=== PATIENT | female | born 1995 | race Caucasian/White ===

== ENCOUNTER 2018-08-14 07:26 | Emergency (ER) | payer OTHER ==
[2018-08-14 07:35] VITALS: BP 143/67; PULSE 70; TEMP 97.9; BMI 25.3
[2018-08-14] MEDS ORDERED: KETOROLAC TROMETHAMINE 60 MG/2 ML VIAL IM ONE (07:37)
[2018-08-14] MEDS ORDERED: KETOROLAC TROMETHAMINE 60 MG/2 ML VIAL ONE (07:39)
--- NOTE | 2018-08-14 07:53 | PDOC ---
History of Present Illness - General Chief Complaint: Injury Stated Complaint: ANKLE PAIN Time Seen by Provider: 08/14/18 07:32 History Source: Patient Exam Limitations: Clinical Condition - History of Present Illness Initial Comments: 08/14/18 07:48 Patient with no significant past medical history present with complaint of severe pain and swelling to right ankle status post twisting her ankle while going to airplane last night. Patient was seen in the ED in [facility] which x-ray was done and patient was splinted per patient flu back to the [place] to be evaluated. Patient does not know what x-ray showed in the ED in [facility]. Patient reported increased pain to right ankle with ambulation. Denies numbness or tingling sensation. Denies hitting head or loss of consciousness. Timing/Duration: 24 hours Past History - Past Medical History Allergies/Adverse Reactions: Allergies Allergy/AdvReac Type Severity Reaction Status Date / Time No Known Allergies Allergy Verified 08/14/18 07:37 Home Medications: Ambulatory Orders Ibuprofen 800 mg PO Q8H PRN #20 tablet 08/14/18 Oxycodone HCl/Acetaminophen [Percocet 5-325 mg Tablet] 1 tab PO Q6H PRN #10 tablet MDD 3 08/14/18 COPD: No Kidney Stones: No - Surgical History Appendectomy: Yes - Immunization History Immunization Up to Date: Yes - Suicide/Smoking/Psychosocial Hx Smoking Status: No Smoking History: Unknown if ever smoked Have you smoked in the past 12 months: No Number of Cigarettes Smoked Daily: 0 Information on smoking cessation initiated: No Hx Alcohol Use: No Drug/Substance Use Hx: No Substance Use Type: None Review of Systems - Review of Systems Able to Perform ROS?: Yes Is the patient limited Yi proficient: No Constitutional: No: Weakness HEENTM: No: Symptoms Reported Respiratory: No: Symptoms reported Cardiac (ROS): No: Symptoms Reported, Lightheadedness ABD/GI: No: Symptoms Reported Musculoskeletal: Yes: Symptoms Reported, See HPI, Joint Pain (right ankle), Joint Swelling (right ankle), Muscle Pain (right ankle) Integumentary: Yes: Bruising, Change in Color (medial side of right ankle) Neurological: No: Numbness, Paresthesia, Tingling All Other Systems: Reviewed and Negative *Physical Exam - Vital Signs Last Vital Signs Temp Pulse Resp BP Pulse Ox 97.9 F 70 18 143/67 99 08/14/18 07:28 08/14/18 07:28 08/14/18 07:28 08/14/18 07:28 08/14/18 07:28 - Physical Exam Comments: 08/14/18 07:53 GENERAL: Well developed, well nourished. Awake and alert in moderate acute distress. CARDIOVASCULAR: Regular rate and rhythm. No murmurs, rubs, or gallops. PULMONARY: No evidence of respiratory distress. MUSCULOSKELETAL : Moderate tenderness to palpate to medial and lateral malleolus of right ankle. Moderate swelling to right ankle and whole foot. Mild swelling to right lower leg. No bony deformities . Moderate ecchymosis to medial malleolus of right ankle. SKIN: Warm and dry. Normal capillary refill. Moderate swelling and ecchymosis to right ankle. NEUROLOGICAL: Alert, awake, appropriate. No motor deficits in the lower extremities. Gait is normal without ataxia. PSYCHIATRIC: Cooperative. Good eye contact. Appropriate mood and affect. General Appearance: Yes: Nourished, Appropriately Dressed, Moderate Distress Procedures - Splinting Splint Location: Right: Ankle Pre-Proc Neuro Vasc Exam: normal Pre-Made Type: aircast Hand-Made Type: orthoglass Splint Type: Yes: Sugar Tong (right ankle splint) Post-Proc Neuro Vasc Exam: normal Artemio Bandage: 2" Sling: No Complications: No Post splint xray: No Good repositioning: Yes ED Treatment Course - LABORATORY CBC & Chemistry Diagram: 08/14/18 09:21 08/14/18 09:21 - RADIOLOGY Radiology Studies Ordered: Category Date Time Status ANKLE & FOOT-RIGHT* [RAD] Stat Radiology 08/14/18 07:37 Ordered LEG TIB/FIB-RIGHT [RAD] Stat Radiology 08/14/18 07:41 Ordered Medical Decision Making - Medical Decision Making 08/14/18 07:49 Patient with no significant past medical history present with complaint of severe pain and swelling to right ankle status post twisting her ankle while going to airplane last night. Patient was seen in the ED in [facility] which x-ray was done and patient was splinted per patient flew back to the [place] to be evaluated. Patient does not know what x-ray showed in the ED in [facility]. Patient reported increased pain to right ankle with ambulation. Denies numbness or tingling sensation. Denies hitting head or loss of consciousness. patient present with posterior ankle splint in place Exam significant for moderate swelling and ecchymosis to medial malleolus of right ankle. Severe tender to palpate to right ankle and foot. Toradol 60 mg IM ordered for pain. X-ray of right ankle, foot and tib-fib ordered. Treat based on imaging results 08/14/18 08:40 X-ray of ankle shows bimalleolar fracture with displays distal tibia. X-ray of tib-fib within normal limits. Consult orthopedist placed for follow-up management 08/14/18 10:[address] Coto who advised to place patient in splint and non-weight bearing with follow-up in clinic for surgery. pre-op labs ordered as per ortho request. Patient placed in sugar tong ankle splint and given crutches for ambulation. Follow-up instructions discussed with patient . Patient advised to keep leg elevated. Patient stable for discharge *DC/Admit/Observation/Transfer Diagnosis at time of Disposition: Bimalleolar ankle fracture Qualifiers: Encounter type: initial encounter Fracture type: closed Laterality: right Qualified Code(s): S82.841A - Displaced bimalleolar fracture of right lower leg , initial encounter for closed fracture - Discharge Dispostion Disposition: HOME Condition at time of disposition: Stable Decision to Admit order: No - Prescriptions Prescriptions: Ibuprofen 800 mg PO Q8H PRN #20 tablet PRN Reason: pain Oxycodone HCl/Acetaminophen [Percocet 5-325 mg Tablet] 1 tab PO Q6H PRN #10 tablet MDD 3 PRN Reason: pain - Referrals Referrals: Derek Coto MD [Staff Physician] - 08/16/18 9:00 am - Patient Instructions Printed Discharge Instructions: DI for Ankle Fracture Additional Instructions: Keep weight off right ankle and use provided crutches to ambulate. Keep right ankle elevated . Take prescribed medications as prescribed for pain. Follow-up with referred orthopedics on thursday morning in the clinic for follow-up surgery as discussed - Post Discharge Activity
[2018-08-14 09:48] LABS: BASO % 0.3 % (0-2.0); EOS % 0.7 % (0-4.5); HEMATOCRIT 41.1 % (32.4-45.2); HEMOGLOBIN 13.8 GM/dL (10.7-15.3); LYMPH % 20.8 % (8-40); MCH 29.9 pg (25.7-33.7); MCHC 33.6 g/dl (32.0-36.0); MEAN PLT VOLUME 9.7 fl (7.5-11.1); MONO % 7.7 % (3.8-10.2); NEUT % 70.5 % (42.8-82.8); PLATELET COUNT 172 K/MM3 (134-434); RBC 4.62 M/mm3 (3.60-5.2); RDW 12.9 % (11.6-15.6); WHITE BLOOD COUNT 7.4 K/mm3 (4.0-10.0)
[2018-08-14 09:58] LABS: INR 1.07 (0.83-1.09); PROTHROMBIN TIME (PATIENT) 12.6 SEC (9.7-13.0)
[2018-08-14 10:01] LABS: ACTIVATED PTT 28.8 SECONDS (25.2-36.5)
[2018-08-14 10:06] LABS: ALBUMIN 4.1 g/dl (3.4-5.0); ALK PHOS 78 U/L (45-117); ANION GAP 5 MMOL/L (8-16); BILIRUBIN,TOTAL 0.8 mg/dL (0.2-1); BLOOD UREA NITROGEN 14 mg/dL (7-18); CALCIUM 9.5 mg/dL (8.5-10.1); CHLORIDE 109 mmol/L (98-107); CO2 26 mmol/L (21-32); CREATININE 0.8 mg/dL (0.55-1.3); GLUCOSE,RANDOM 94 mg/dL (74-106); POTASSIUM 4.4 mmol/L (3.5-5.1); SGOT/AST 16 U/L (15-37); SGPT/ALT 20 U/L (13-61); SODIUM 140 mmol/L (136-145)
== END 2018-08-14 10:25 | disposition home or self-care (01) ==
LOC: JER 07:26
PROC: 3E0233Z Introduction of Anti-inflammatory into Muscle, Percutaneous Approach (ICD-10-PCS; principal; 2018-08-14)
PROC: 2W3QX1Z Immobilization of Right Lower Leg using Splint (ICD-10-PCS; 2018-08-14)
DX: S82.841D Displaced bimalleolar fracture of right lower leg, subsequent encounter for closed fracture with routine healing (principal); X50.1XXD Overexertion from prolonged static or awkward postures, subsequent encounter; Y93.01 Activity, walking, marching and hiking; Y92.520 Airport as the place of occurrence of the external cause; Y99.8 Other external cause status
CPT/HCPCS: 36415; 73590-TC-RT-FY; 73610-TC-RT-FY; 73630-TC-RT-FY; 80053; 84702; 85025; 85610; 85730; 86850; 86900; 86901; 99282-25